=== PATIENT | female | born 1945 | race Caucasian/White ===

== ENCOUNTER 2019-05-19 12:22 | Inpatient (IN) | payer OTHER ==
[~2019-05-19] VITALS: Ht 167.6 cm; Wt 61.2 kg
[2019-05-24] MEDS ORDERED: NORVASC2.5 M1 PO (13:44)
[2019-05-24] MEDS ORDERED: COZAAR100 MG PO (13:44)
[2019-05-24] MEDS ORDERED: PROTONIX PO (13:45)
[2019-05-24] MEDS ORDERED: NEURONTIN300 MG PO (13:45)
[2019-05-24] MEDS ORDERED: THERALITH XR T1 EACH IM (13:46)
[2019-05-24] MEDS ORDERED: ZANTAC150 M3 PO (13:46)
[2019-05-29] MEDS ORDERED: PROTONIX20 MG PO (08:09)
[2019-06-02] MEDS ORDERED: Vitamin B-6 PO (08:24)
[2019-06-02] MEDS ORDERED: Neurin-Sl Tablet Sl SL (08:24)
[2019-06-02] MEDS ORDERED: OXYC1TAB9 PO (08:24)
[2019-06-02] MEDS ORDERED: INTESTINEX680 M1 PO (08:25)
[2019-06-02] MEDS ORDERED: PEPCID20 MG PO (08:25)
[2019-06-05] MEDS ORDERED: K-TAB ER8 MEQ PO (15:10)
[2019-06-05] MEDS ORDERED: ULTRACET PO (15:10)
[2019-06-05] MEDS ORDERED: PROTONIX40 MG PO (15:10)
== END 2019-06-05 19:37 | disposition home or self-care (01) | DRG 330 ==
LOC: SURG 05-24 08:00 → O/R 05-29 06:51 → SURG 05-29 06:51 → SURH 05-29 15:41 → SURG 05-29 17:35
PROVIDERS: ADMIT Surgery
PROC: 0DTP0ZZ Resection of Rectum, Open Approach (ICD-10-PCS; 2019-05-29)
PROC: 07TC0ZZ Resection of Pelvis Lymphatic, Open Approach (ICD-10-PCS; 2019-05-29)
PROC: 0DTN0ZZ Resection of Sigmoid Colon, Open Approach (ICD-10-PCS; principal; 2019-05-29 09:00)
PROC: BW21Y0Z Computerized Tomography (CT Scan) of Abdomen and Pelvis using Other Contrast, Unenhanced and Enhanced (ICD-10-PCS; 2019-06-03)
DX: C19 Malignant neoplasm of rectosigmoid junction (principal); D62 Acute posthemorrhagic anemia; K91.31 Postprocedural partial intestinal obstruction; J90 Pleural effusion, not elsewhere classified; E87.6 Hypokalemia; R19.4 Change in bowel habit; R10.84 Generalized abdominal pain; K63.89 Other specified diseases of intestine; I11.9 Hypertensive heart disease without heart failure